=== PATIENT | male | born 1985 ===

== ENCOUNTER 2024-05-19 19:52 | Emergency (ER) | payer SELFPAY ==
[2024-05-19] MEDS: Lidocaine 1% 5 ML VIAL INJECT ONE (20:22)
[2024-05-19] MEDS: Take Home: Doxycycline 100 MG Cap, 4 Cap Pack PO ONE (20:57)
[2024-05-19] MEDS: Bacitracin Oint 1 GM U/D Packet TOP ONE (21:03)
[2024-05-19] MEDS: Bacitracin Oint 1 GM U/D Packet ONE (21:03)
== END 2024-05-19 21:00 | disposition home or self-care (01) ==
LOC: DL.ED 19:52
DX: L05.01 Pilonidal cyst with abscess (principal)
CPT/HCPCS: 10080; 99283; A9270; 10060; J3490

== ENCOUNTER 2024-05-25 06:49 | Emergency (ER) | payer SELFPAY | END 2024-05-25 08:23 | disposition home or self-care (01) | LOC: DL.ED 06:49 | DX: R42 Dizziness and giddiness (principal); G47.30 Sleep apnea, unspecified; G47.10 Hypersomnia, unspecified | CPT/HCPCS: 93005; 93010; 99284 ==

== ENCOUNTER 2024-06-08 19:56 | Emergency (ER) | payer OTHER, MEDICAID ==
[2024-06-08 20:58] LABS: BASOPHILS PERCENT AUTO 0.5 % (0.0-1.0); EOSINOPHILS PERCENT AUTO 3.4 % (1.0-3.0); HEMATOCRIT 46.7 % (40.0-54.0); HEMOGLOBIN 15.5 g/dL (14.0-18.0); LYMPHOCYTES PERCENT AUTO 20.6 % (20.5-50.1); MEAN CORPUSCULAR HEMOGLOBIN 29.6 pg (27.0-34.0); MEAN CORPUSCULAR HGB CONC 33.2 g/dL (33.0-35.0); MEAN CORPUSCULAR VOLUME 89.3 fL (80-100); MONOCYTES PERCENT AUTO 10.6 % (2-8); NEUTROPHILS PERCENT AUTO 64.9 % (42.2-75.2); PLATELET COUNT,PLT 244 10^3/uL (150-450); RED BLOOD CELL COUNT 5.23 10^6/uL (4.6-6.2); WHITE BLOOD CELL COUNT,WBC 9.3 10^3/uL (5.0-10.0)
[2024-06-08 21:19] LABS: A/G RATIO 0.68; ALANINE AMINOTRANSFERASE,ALT 94 U/L (16-63); ALBUMIN 3.2 g/dL (3.4-5.0); ALKALINE PHOSPHATASE 77 U/L (46-116); ANION GAP 8.1 mEq/L (7-13); ASPARTATE AMNIOTRANSFERASE,AST 71 U/L (15-37); BILIRUBIN TOTAL 0.2 mg/dL (0.2-1.0); BLOOD UREA NITROGEN,BUN 12 mg/dL (7-18); BUN/CREATININE RATIO 13.8 (No establ ref range); CALCIUM 9.1 mg/dL (8.5-10.1); CARBON DIOXIDE,CO2 31 mmol/L (21-32); CHLORIDE,CL 101 mmol/L (98-107); CREATININE 0.87 mg/dL (0.70-1.30); ESTIMATED GFR 115 mL/min (>=60); GLUCOSE RANDOM 91 mg/dL (70-99); POTASSIUM,K 4.1 mmol/L (3.5-5.1); PROTEIN TOTAL,TP 7.9 g/dL (6.4-8.2); SODIUM,NA 136 mmol/L (136-145)
[2024-06-09] MEDS: Iopamidol 612 MG/ML 100 ML Bottle IVPUSH ONE (00:06)
== END 2024-06-09 00:05 | disposition home or self-care (01) ==
LOC: DL.ED 19:56
DX: S09.90XA Unspecified injury of head, initial encounter (principal); M25.511 Pain in right shoulder; M25.571 Pain in right ankle and joints of right foot; R10.9 Unspecified abdominal pain; V89.2XXA Person injured in unspecified motor-vehicle accident, traffic, initial encounter
CPT/HCPCS: 36415; 70450; 71260; 72125; 74177; 80053; 80307; 83735; 85025; 99285; Q9967; 99283

== ENCOUNTER 2024-12-16 00:15 | Emergency (ER) | payer MEDICAID ==
[2024-12-16] MEDS ORDERED: Sodium Chloride 0.9% 10 ML Syringe FLUSH PRN (00:30)
[2024-12-16 00:52] LABS: PLATELET COUNT,PLT 231 10^3/uL (150-450); RED BLOOD CELL COUNT 4.54 10^6/uL (4.6-6.2); WHITE BLOOD CELL COUNT,WBC 12.0 10^3/uL (5.0-10.0)
[2024-12-16 00:59] LABS: BASOPHILS PERCENT AUTO 0.2 % (0.0-1.0); EOSINOPHILS PERCENT AUTO 4.7 % (1.0-3.0); LYMPHOCYTES PERCENT AUTO 26.4 % (20.5-50.1); MONOCYTES PERCENT AUTO 9.3 % (2-8); NEUTROPHILS PERCENT AUTO 59.4 % (42.2-75.2)
[2024-12-16 01:20] LABS: A/G RATIO 0.76; ALANINE AMINOTRANSFERASE,ALT 82 U/L (16-63); ASPARTATE AMNIOTRANSFERASE,AST 32 U/L (15-37); BILIRUBIN TOTAL 0.3 mg/dL (0.2-1.0); BLOOD UREA NITROGEN,BUN 14 mg/dL (7-18); CARBON DIOXIDE,CO2 28 mmol/L (21-32); CHLORIDE,CL 104 mmol/L (98-107); CREATININE 0.72 mg/dL (0.70-1.30); EST CRCL DRUG DOSING (CG) 154.18 mL/min; ESTIMATED GFR 121 mL/min (>=60); GLUCOSE RANDOM 91 mg/dL (70-99); LACTIC ACID 1.3 mmol/L (0.4-2.0); POTASSIUM,K 3.9 mmol/L (3.5-5.1); PROTEIN TOTAL,TP 6.7 g/dL (6.4-8.2); SODIUM,NA 139 mmol/L (136-145)
[2024-12-16 01:28] LABS: INR 1.0 (0.9-1.2); PTT,PARTIAL THROMBOPLSTIN TIME 26.6 SEC (22.0-34.0)
[2024-12-16 01:34] LABS: BAND PERCENT MAN 4 %; EOSINOPHILS PERCENT MAN 3 % (1-3); LYMPHOCYTES PERCENT MAN 35 % (20-50); MONOCYTES PERCENT MAN 4 % (2-8); SEG NEUTROPHILS PERCENT MAN 54 % (42-75)
[2024-12-16] MEDS: Iopamidol 755 Mg/ML 100 ML Bottle IVPUSH ONE (01:59)
== END 2024-12-16 02:43 | disposition home or self-care (01) ==
LOC: DL.ED 00:15
DX: R07.89 Other chest pain (principal)
CPT/HCPCS: 36415; 71045; 71275; 80053; 83605; 83735; 83880; 84145; 84484; 85025; 85379; 85610; 85730; 86140; 87428; 93005; 93010; 99284; 99285; Q9967